=== PATIENT | male | born 1945 | race Caucasian/White ===

== ENCOUNTER 2023-12-05 20:23 | Emergency (ER) | payer MEDICARE, OTHER, SELFPAY ==
[2023-12-05 20:25] VITALS: BP 104/68; PULSE 72; RESP 20; TEMP 36.7; O2SAT 98
--- NOTE | 2023-12-05 23:11 | ED.WOUNDLAC ---
HPI - Wound/Laceration General Chief Complaint: Wound/Laceration Stated Complaint: laceration Time Seen by Provider: 12/05/23 21:30 Source: patient Mode of arrival: ambulatory Limitations: no limitations History of Present Illness HPI narrative: This is a 78 year old male that presents to the ER for laceration to the right 5th finger sustained today. 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 Reports difficulty getting the bleeding to stop. He is not up to date on tetanus vaccination. Denies decreased ROM or numbness. Related Data Allergies Allergy/AdvReac Type Severity Reaction Status Date / Time morphine Allergy Hives Verified 12/05/23 20:33 Review of Systems Review of Systems: CONSTITUTIONAL: Denies fever SKIN: Reports laceration NEUROLOGIC: Denies numbness All systems reviewed & are unremarkable except as noted in HPI and below PMFSH Past Medical History Medical History (Updated 12/06/23 @ 00:09 by Jillian Loza PA-C) Cervical spondylosis Social History Social History (Updated 12/05/23 @ 23:15 by Jillian Loza PA-C) Substance use: current Substance use type: marijuana Exam Narrative: GENERAL: Well-appearing, well-nourished, and in no acute distress. HEAD: Normocephalic, atraumatic. EYES: EOMI. EXTREMITIES: Normal range of motion. No edema. 1cm flap laceration to the right 5th finger distal phalanx SKIN: Warm, dry, no rash. NEURO: No focal deficits. Alert and oriented x3. PSYCH: Normal mood and affect Course Course Emergency Course: Patient educated on further wound care Vital Signs Vital signs: Vital Signs Temperature 98.0 F 12/05/23 20:25 Pulse Rate 72 12/05/23 20:25 Respiratory Rate 12/05/23 20:25 Blood Pressure 104/68 12/05/23 20:25 Pulse Oximetry 98 12/05/23 20:25 Oxygen Delivery Room Air 12/05/23 20:25 Temperature 98.0 F 12/05/23 20:25 Pulse Rate 72 12/05/23 20:25 Respiratory Rate 20 12/05/23 20:25 Blood Pressure 104/68 12/05/23 20:25 Pulse Oximetry 98 12/05/23 20:25 Oxygen Delivery Room Air 12/05/23 20:25 Procedures Laceration Laceration 1: Date: 12/06/23 Time: 00:17 Site: hand Side (If applicable): right Size (cm): 1 Description: flap Depth: simple, single layer Local Anesthetic: lidocaine 1% Amount of anesthesia used (mL): 3 Pre-repair: irrigated ====== Skin Level ====== Skin layer closed with: nylon Size (cm): 4-0 Number of sutures: 2 Technique: simple, interrupted ====== Subcutaneous Layer ====== ====== Muscle Layer ====== ====== Tendon Layer ====== MDM - Wound/Laceration MDM Narrative Medical decision making narrative: Patient presents to the ER for laceration to the right 5th finger sustained today. His wound was irrigated and closed with sutures. He was updated on tetanus. Patient was educated on further wound care. He is to follow up with PCP. He was given warnings to return to the ER Differential Diagnosis Differential diagnosis: Likely laceration, abrasion and avulsion of skin Critical Care Time Critical Care Time Critical Care Time: No Discharge Plan Discharge Clinical Impression: Laceration Patient Disposition: Home, Self-Care Condition: Stable Instructions: Antibiotic Form, Care For Your Stitches (ED), Laceration (ED) Additional Instructions: Return to the emergency department if you experience fever, redness or swelling of your wound, abnormal drainage from your wound, or any other symptoms that are concerning to you. Apply antibiotic ointment daily. Do not soak the wound. Clean with mild soap and water daily Follow-up with your primary care doctor for suture removal in 10-14 days. Prescriptions: New cephalexin 500 mg capsule 500 mg PO Q8H 5 Days Qty: 15 0RF Follow-up/Referrals: Flakito,Laverne [Other] - 2 Weeks
[2023-12-05] MEDS: TETANUS,DIPHTHERIA,AC PERTUSSIS ADULT (0.5 ML) BOOSTRIX IM (23:41)
== END 2023-12-06 00:19 | disposition home or self-care (01) ==
PROVIDERS: Emergency Provider Physician Assistant
DX: S61.216A Laceration without foreign body of right little finger without damage to nail, initial encounter (principal); Z23 Encounter for immunization; W26.8XXA Contact with other sharp object(s), not elsewhere classified, initial encounter
CPT/HCPCS: 12001; 90471; 90715; 99283